=== PATIENT | female | born 1950 | race Caucasian/White ===

== ENCOUNTER 2023-02-13 07:26 | Day surgery (SDC) | payer MEDICARE, BC ==
[~2023-02-13] VITALS: Ht 157.5 cm; Wt 78.0 kg
[~2023-02-13 07:26] MED LIST: BSS IRRIG/VANCO(10MG)/TOBRA(5MG)/EPINEPH(1:1000-0.5CC)500ML BAG-ORONLY IR ONE; CEFUROXIME 1MG/0.1ML INTRACAMERAL INJ As Ordered ONE; CYCLOPENTOLATE 1% OPHTH SOLN 2ML BTL OD SCH; GNP250TA9 PO; HYDR12CA PO; LIDOCAINE 1% SDV 5ML VIAL As Ordered ONE; LIDOCAINE 3.5 % 1ML OPHTH TOPICAL GEL OU ONE; MIDAZOLAM INJ 2MG/2ML VIAL As Ordered ONE; MOME50SP2; OFLOXACIN 0.3 % (OCUFLOX) OPTH SOL 5ML OD ONE; PANT20TA6 PO; PHENYLEPHRINE 10% OPHTH SOL 5ML OD PRN; PHENYLEPHRINE 2.5% OPHTH SOL 2ML OD SCH; RA B1TAB7 PO; ROSU5TAB5 PO; TROPICAMIDE 1% OPHTH SOLN 15ML OD SCH; TURM500C5 PO; fentaNYL 100 MCG/2 ML INJECTION As Ordered ONE
[2023-02-13 09:25] VITALS: BP 133/77; TEMP 96; O2SAT 96
== END 2023-02-13 09:51 | disposition home or self-care (01) ==
LOC: M SDC 07:26
PROVIDERS: ATTEND Ophthalmology
DX: H25.11 Age-related nuclear cataract, right eye (principal); R07.9 Chest pain, unspecified; K21.9 Gastro-esophageal reflux disease without esophagitis; Z79.899 Other long term (current) drug therapy
CPT/HCPCS: 66984; J0697; J2250; J3010; V2632